=== PATIENT | female | born 1975 ===

== ENCOUNTER → 2018-10-23 22:05 | Outpatient (REF) | payer SELFPAY ==
[2018-10-23 23:18] LABS: Alanine Aminotransferase 20 IU/L (9-52); Albumin 4.1 g/dL (3.5-5.0); Albumin Globulin Ratio 1.5 (1.0-2.8); Alkaline Phosphatase 61 U/L (38-126); Aspartate Aminotransferase 23 IU/L (14-36); BUN Creatinine Ratio 16.7 (6-22); Bilirubin Total 0.1 mg/dL (0.2-1.3); Blood Urea Nitrogen 10 mg/dL (7-17); Calcium 9.1 mg/dL (8.4-10.2); Carbon Dioxide 22 mmol/L (22-32); Chloride 106 mmol/L (98-107); Cholesterol 183 mg/dL (140-199); Estimated Glomerular Filt Rate > 60.0 mL/min (>60); Globulin 2.8 g/dL (1.7-4.1); Glucose 83 mg/dL (70-100); HDL Cholesterol 98 mg/dL (40-60); HEMOLYSIS < 15 (0-50); LDL Cholesterol Calculated 67 mg/dL (<100); Potassium 4.1 mmol/L (3.4-5.1); Sodium 138 mmol/L (137-145); Total Protein 6.9 g/dL (6.3-8.2); Triglycerides 88 mg/dL (35-150)
[2018-10-23 23:26] LABS: Add Manual Diff / Slide Review NO; Basophils Absolute Auto 0 /uL (0-100); Basophils Percent Auto 0.4 % (0-2); Eosinophils Absolute Auto 400 /uL (0-450); Eosinophils Percent Auto 5.4 % (2-4); Hematocrit 36.8 % (36-46); Hemoglobin 12.2 g/dL (12.0-16.0); Lymphocytes Absolute Auto 1800 /uL (1100-4500); Lymphocytes Percent Auto 26.6 % (25-40); Mean Corpuscular HGB Conc 33.2 % (30-36); Mean Corpuscular Hemoglobin 29.6 PG (26-34); Monocytes Absolute Auto 500 /uL (0-900); Monocytes Percent Auto 7.8 % (3-14); Neutrophils Absolute Auto 4100 /uL (1500-7000); Neutrophils Percent Auto 59.8 % (50-75); Platelet Count 302 X10^3/uL (150-400); Red Blood Cell Count 4.14 X10^6/uL (4.0-5.2); Red Cell Distribution Width 14.1 % (11.6-14.8); Total Iron Binding Capacity 334 ug/dL (265-497); White Blood Cell Count 6.9 X10^3/uL (4.5-11.0)
[2018-10-23 23:36] LABS: Free T3, Triiodothyronine Free 3.56 pg/mL (2.77-5.27); T4 Total Thyroxine 5.99 ug/dL (5.5-11.0)
[2018-10-23 23:49] LABS: Thyroid Stimulating Hormone 1.41 uIU/mL (0.47-4.68)
[2018-10-23 23:51] LABS: Cortisol Random 9.69 ug/dL
[2018-10-23 23:56] LABS: Ferritin 12.9 ng/mL (6.27-137)
[2018-10-26 16:19] LABS: Progesterone 9.9 ng/mL
[2018-10-26 21:16] LABS: Estrogen 387.9 pg/mL
== END ==
LOC: LAB 22:05
PROVIDERS: Visit Provider Naturopath
DX: Z00.00 Encounter for general adult medical examination without abnormal findings (principal)
CPT/HCPCS: 36415; 80053; 80061; 82533; 82627; 82672; 82728; 83550; 84144; 84436; 84443; 84481; 85025